=== PATIENT | female | born 1945 | race Hispanic/Latino ===

== ENCOUNTER 2019-04-18 15:23 | Outpatient (RCR) | payer MEDICARE, OTHER ==
[~2019-04-18 15:23] MED LIST: ALLOPURINOL100 MG PO; ASPIRIN325 M2; CLONAZEPAM0.5 MG PO; DIGOXIN125 MCG PO; GENERLAC10 GM/15 M PO; HUMALOG100 UNIT/3 SQ; LYRICA200 MG PO; LYRICA75 MG; METOPROLOL SUCC25 MG PO; NEPHRO-VITE TABL1 EA PO; PANTOPRAZOLE SO40 MG PO; PRAVASTATIN SOD40 MG PO; PROAIR HFA INH8.5 GM; PROAIR HFA8.5 GM; ROPINIROLE HCL0.5 MG PO; SYSTANE BALANCE10 ML; TRAMADOL HCL50 MG PO; TYLENOL WITH C1 EACH PO; ULTRAM50 MG PO; Z DILTIAZEM; Z LESCOL; Z.0.ALLOPURINOL100 M PO; Z.0.AMARYL4 MG; Z.0.DEXILANT60 MG; Z.0.FOLIC ACID1 MG PO; Z.0.GLUCOPHAGE1000 M PO; Z.0.KLOR-CON 1010 ME; Z.0.LANTUS100 UNIT/1 SQ; Z.0.LASIX40 MG; Z.0.LOSARTAN POTASS2 PO; Z.0.LYRICA150 MG; Z.0.NEXIUM40 MG PO; Z.0.TOPROL XL50 MG; Z.2.LOSARTAN-HCTZ1 E
== END 2019-04-21 ==
LOC: WCC 15:23
PROVIDERS: ATTEND Family Medicine Adult Medicine
DX: E11.621 Type 2 diabetes mellitus with foot ulcer (principal); E11.65 Type 2 diabetes mellitus with hyperglycemia; L89.323 Pressure ulcer of left buttock, stage 3; L97.521 Non-pressure chronic ulcer of other part of left foot limited to breakdown of skin; L97.421 Non-pressure chronic ulcer of left heel and midfoot limited to breakdown of skin; L97.411 Non-pressure chronic ulcer of right heel and midfoot limited to breakdown of skin; L97.518 Non-pressure chronic ulcer of other part of right foot with other specified severity; I87.332 Chronic venous hypertension (idiopathic) with ulcer and inflammation of left lower extremity; I87.331 Chronic venous hypertension (idiopathic) with ulcer and inflammation of right lower extremity; L03.119 Cellulitis of unspecified part of limb; R60.0 Localized edema; I87.2 Venous insufficiency (chronic) (peripheral); I73.89 Other specified peripheral vascular diseases; I10 Essential (primary) hypertension; D53.1 Other megaloblastic anemias, not elsewhere classified; I50.9 Heart failure, unspecified; N18.9 Chronic kidney disease, unspecified; N39.0 Urinary tract infection, site not specified; R31.9 Hematuria, unspecified; Z74.01 Bed confinement status